=== PATIENT | male | born 2000 | race Caucasian/White ===

== ENCOUNTER 2022-11-26 17:06 | Emergency (ER) | payer MEDICAID ==
[~2022-11-26] VITALS: Ht 172.7 cm; Wt 90.0 kg
[2022-11-26 17:11] VITALS: O2SAT 99
[2022-11-26] MEDS ORDERED: KETOROLAC 60MG/2ML VIAL IM ONE (18:15)
[2022-11-26 19:11] VITALS: BP 127/85; PULSE 82; RESP 19; TEMP 98.7
== END 2022-11-26 19:12 | disposition home or self-care (01) ==
LOC: ER 17:06
DX: R05.9 Cough, unspecified (principal); R09.81 Nasal congestion; M79.10 Myalgia, unspecified site
CPT/HCPCS: 99283; 71045; 96372; J1885